=== PATIENT | female | born 1970 | race Caucasian/White ===

== ENCOUNTER 2023-01-24 07:53 | Emergency (ER) | payer MEDICAID, OTHER ==
[~2023-01-24] VITALS: Ht 157.5 cm; Wt 54.4 kg
[~2023-01-24 07:53] MED LIST: IBUP-974 PO; LISI5TAB18 PO; ROSU10TA1 PO; SITA25TA3 PO
[2023-01-24 08:10] VITALS: BP 128/54; PULSE 58; RESP 18; TEMP 97.2; O2SAT 98
[2023-01-24 08:32] LABS: BASOPHILS % (AUTO) 0.4 % (0.0-2.0); EOSINOPHILS % (AUTO) 0.9 % (0.0-4.0); HEMATOCRIT 38.9 % (36-48); HEMOGLOBIN 12.8 g/dL (12.0-16.0); LYMPHOCYTES # (AUTO) 1.9 K/uL (2.5-16.5); LYMPHOCYTES % (AUTO) 35.6 % (20.5-51.1); MEAN CORPUSCULAR HEMOGLOBIN 28 pg (27-31); MEAN CORPUSCULAR HGB CONC 33 g/dL (33-37); MEAN CORPUSCULAR VOLUME 85.8 fL (80-94); MONOCYTES # (AUTO) 0.4 K/uL (0.8-1.0); MONOCYTES % (AUTO) 8.1 % (1.7-9.3); NEUTROPHILS # (AUTO) 2.9 K/uL (1.8-7.7); PLATELET COUNT (AUTO) 203 K/uL (140-450); RED BLOOD CELL COUNT(AUTO) 4.53 MIL/uL (4.20-5.40); WHITE BLOOD COUNT (AUTO) 5.3 K/uL (4.8-10.8)
[2023-01-24 08:58] VITALS: O2SAT 98
[2023-01-24] MEDS ORDERED: ASPIRIN 325 MG TAB PO ONE (09:05)
[2023-01-24] MEDS ORDERED: MORPHINE SULFATE 4 MG/ML SYR IVP ONE (09:05)
[2023-01-24 09:14] LABS: ANION GAP 12.4 (8-16); CALCIUM 8.8 mg/dL (8.5-10.1); CARBON DIOXIDE 28.7 mmol/L (21-32); CREATININE 0.6 mg/dL (0.6-1.3); POTASSIUM 4.1 mmol/L (3.5-5.1); TOTAL BILIRUBIN 0.4 mg/dL (0.0-1.0); TOTAL PROTEIN, SERUM 7.6 g/dL (6.4-8.2)
[2023-01-24] MEDS ORDERED: MORPHINE SULFATE 4 MG/ML SYR IM ONE (09:20)
[2023-01-24] MEDS ORDERED: ONDANSETRON 4 MG/2 ML VIAL IM ONE (10:10)
[2023-01-24] MEDS ORDERED: ONDANSETRON 4 MG/2 ML VIAL IVP ONE (10:25)
[2023-01-24 10:58] VITALS: O2SAT 98
[2023-01-24] MEDS ORDERED: NACL 0.9% 1,000 ML IV ONE (11:25)
[2023-01-24 12:56] VITALS: O2SAT 98
[2023-01-24] MEDS ORDERED: DICYCLOMINE HCL LIQUID 20 MG, ALUMINUM HYD/MAG/SIMETHICONE 30 ML, LIDOCAINE VISCOUS 2% ... PO ONE ×3 (13:15)
[2023-01-24] MEDS ORDERED: DICYCLOMINE HCL LIQUID 10 MG/5 ML UDC ONE (13:52)
[2023-01-24] MEDS ORDERED: ALUMINUM HYD/MAG/SIMETHICONE 30 ML UDC ONE (13:52)
[2023-01-24] MEDS ORDERED: FAMO-92 PO (14:27)
[2023-01-24 14:29] VITALS: BP 133/72; PULSE 61; RESP 17; TEMP 98.2; O2SAT 98
== END 2023-01-24 14:52 | disposition home or self-care (01) ==
LOC: MED 07:53
DX: R07.9 Chest pain, unspecified (principal); R10.13 Epigastric pain; I10 Essential (primary) hypertension; E11.9 Type 2 diabetes mellitus without complications; Z79.4 Long term (current) use of insulin; Z79.899 Other long term (current) drug therapy
CPT/HCPCS: 36415; 71045; 74177; 80053; 83690; 83880; 84484; 85025; 93005; 96361; 96372; 96374; 99285; J2270; J2405; Q9967; J7030

== ENCOUNTER 2023-02-23 08:15 | Emergency (ER) | payer OTHER ==
[~2023-02-23] VITALS: Ht 157.5 cm; Wt 62.1 kg
[~2023-02-23 08:15] MED LIST changes: +FAMO-92 PO
[2023-02-23 08:32] VITALS: BP 121/68; PULSE 69; RESP 18; TEMP 97.5; O2SAT 100
[2023-02-23] MEDS ORDERED: cefTRIAXone 500 MG in LIDOCAINE MPF 1% 1 ML IM ONE (08:35)
[2023-02-23] MEDS ORDERED: ACETAMINOPHEN EXTRA STRENGTH 500 MG TAB PO ONE (08:35)
[2023-02-23] MEDS ORDERED: PHENAZOPYRIDINE 100 MG TAB PO ONE (08:35)
[2023-02-23] MEDS ORDERED: ONDANSETRON 4 MG ODT PO ONE (08:40)
[2023-02-23 08:54] VITALS: O2SAT 98
[2023-02-23 08:55] LABS: APPEARANCE,URINE CLEAR (CLEAR); BILIRUBIN,URINE NEGATIVE (NEGATIVE); BLOOD, URINE 3+ (NEGATIVE); COLOR,URINE YELLOW (YELLOW); LEUKOCYTE ESTERASE ,URINE 1+ (NEGATIVE); NITRITE, URINE NEGATIVE (NEGATIVE); PH,URINE 5.5 (5.0-9.0); PROTEIN,URINE 1+ (NEGATIVE); UGLUCOSE NEGATIVE (NEGATIVE); UROBILINOGEN,URINE 0.2 EU/dL (0.2 - 1)
[2023-02-23] MEDS ORDERED: ACET-10509 PO (09:08)
[2023-02-23] MEDS ORDERED: CEPH-588 PO (09:08)
[2023-02-23] MEDS ORDERED: PHEN-1877 PO (09:08)
[2023-02-23] MEDS ORDERED: cefTRIAXone 500 MG VIAL ONE (09:09)
[2023-02-23] MEDS ORDERED: LIDOCAINE MPF 1% 5 ML ONE (09:10)
[2023-02-23 09:35] LABS: BACTERIA,URINE 2+ /HPF (None Seen); RBC,URINE 11-20 (MOD) /HPF (0-5); SQUAMOUS EPITHELIAL CELL,UR 0-3 (FEW) /LPF (0-3 (FEW)); WBC,URINE 20-60 /HPF (0-5)
[2023-02-23 11:19] VITALS: O2SAT 98
== END 2023-02-23 09:09 | disposition home or self-care (01) ==
LOC: MED 08:15
DX: N10 Acute pyelonephritis (principal); E11.9 Type 2 diabetes mellitus without complications; I10 Essential (primary) hypertension; Z90.49 Acquired absence of other specified parts of digestive tract; Z90.710 Acquired absence of both cervix and uterus; Z79.899 Other long term (current) drug therapy; Z79.2 Long term (current) use of antibiotics; Z79.1 Long term (current) use of non-steroidal anti-inflammatories (NSAID)
CPT/HCPCS: 81001; 87086; 96372; 99284; J0696; J2001; Q0162